=== PATIENT | male | born 1950 | race Caucasian/White ===

== ENCOUNTER 2018-08-30 00:40 | Inpatient (IN) | payer BC, MEDICARE ==
[2018-08-29 15:24] LABS: INR 1.02
[2018-08-30] VITALS (12 sets, daily range): BP systolic 111–154; BP diastolic 56–89
[~2018-08-30] VITALS: Ht 172.7 cm; Wt 108.9 kg
[~2018-08-30 00:40] MED LIST: ASPI-1471 PO; CYCL10TA29 PO; GABA-549 PO; LOSA100T75 PO; MAGN400C PO; METO25TA23 PO; NAPR500T31 PO; TRAM-420 PO; TURM500C4 PO
[2018-08-30] MEDS ORDERED: PREGABALIN 150 MG CAPSULE PO ONE (07:15)
[2018-08-30] MEDS ORDERED: ceFAZolin(*) 2GM/D5W 50ML 50 ML IVPB ONE (07:15)
[2018-08-30] MEDS ORDERED: TRANEXAMIC AC 1000 MG/10ML SDV 1,000 MG in DEXTROSE 5% 50 ML BAG 50 ML IV ONE (07:15)
[2018-08-30] MEDS ORDERED: LIDOCAINE/SOD BICARB 8.4% SYR ID ONE (07:15)
[2018-08-30] MEDS ORDERED: NORMOSOL R SOLN(*) 1000 ML BAG 1,000 ML IV PRN (07:15)
[2018-08-30] MEDS ORDERED: CELECOXIB 200 MG CAP PO ONE (07:15)
[2018-08-30] MEDS ORDERED: ROPIVACAINE/EPI/CLONIDINE/KET 50 ML SYRINGE INJ ONE (07:15)
[2018-08-30] MEDS ORDERED: FAMOTIDINE 20 MG TAB PO ONE (07:15)
[2018-08-30] MEDS ORDERED: MIDAZOLAM 2 MG/2 ML VIAL IVP PRN (07:15)
[2018-08-30] MEDS ORDERED: ACETAMINOPHEN 500 MG TAB PO ONE (07:15)
[2018-08-30] MEDS ORDERED: BACITRACIN 50000 UNIT/VIAL 100,000 UNIT in NS 0.9% 3000 ML IRRIGATION BAG 3,000 ML IR ONE (07:15)
[2018-08-30] MEDS ORDERED: fentaNYL CITR 100 MCG/2 ML AMP ONE (07:18)
[2018-08-30] MEDS ORDERED: KETAMINE HCL-NS 50 MG/5 ML SYR ONE (07:18)
[2018-08-30] MEDS ORDERED: LIDOCAINE MPF 1% 5 ML VIAL ONE (07:19)
[2018-08-30] MEDS ORDERED: DEXAMETHASONE SOD PHOS 10MG/ML ONE (07:19)
[2018-08-30] MEDS ORDERED: PROPOFOL EMUL(*) 10MG/ML 20 ML 20 ML ONE (07:19)
[2018-08-30] MEDS ORDERED: ONDANSETRON 4 MG/2 ML VIAL ONE (07:19)
[2018-08-30] MEDS ORDERED: NS(*) 0.9% 100 ML BAG 100 ML ONE (09:09)
--- NOTE | 2018-08-30 10:25 | RADIOLOGY IMAGING REPORT ---
FACILITY: [facility] PATIENT NAME: Jesse Franklin : 1950 MR: [id number] V: [id number] EXAM DATE: ORDERING PHYSICIAN: JOSE C MARCOS TECHNOLOGIST: Location: [facility] Patient: Jesse Franklin : 1950 Visit/Account:[id number] Date of Sevice: 08/30/2018 HIP IN OR LEFT COMPARISON: None. HISTORY: Arthroplasty FINDINGS: Single view of the left hip demonstrates left hip arthroplasty. Instrumentation overlies the pelvis. No lucency about the left hip component. Gas within the joint is likely postoperative. IMPRESSION: Single postoperative view left hip without findings of complication. Report Dictated By: Braydon Cedeno MD at 08/30/2018 10:15 AM Report E-Signed By: Braydon Cedeno MD at 08/30/2018 10:15 AM WSN:[id number]
[2018-08-30] MEDS ORDERED: MAGNESIUM HYDROXIDE* 30ML UDCP PO PRN (10:45)
[2018-08-30] MEDS ORDERED: BISACODYL 10 MG SUPP PR PRN (10:45)
[2018-08-30] MEDS ORDERED: LR 1000 ML BAG 1000 ML IV PRN (10:45)
[2018-08-30] MEDS ORDERED: ONDANSETRON 4 MG/2 ML VIAL IVP PRN (10:45)
[2018-08-30] MEDS ORDERED: diphenhydrAMINE 50 MG/ML VIAL IVP PRN (10:45)
[2018-08-30] MEDS ORDERED: PROMETHAZINE 25 MG/ML 1 ML AMP IVP PRN (10:45)
[2018-08-30] MEDS ORDERED: ZOLPIDEM TARTRATE 5 MG TAB PO PRN (10:45)
[2018-08-30] MEDS ORDERED: HYDROmorphone HCL 2 MG/ML SDV IVP PRN (10:45)
[2018-08-30] MEDS ORDERED: FLUSH 10 ML SYR IVP PRN (10:45)
[2018-08-30] MEDS ORDERED: diphenhydrAMINE 25 MG CAP PO PRN (10:45)
[2018-08-30] MEDS ORDERED: MAGNESIUM CITRATE 300 ML BTL PO PRN (10:45)
[2018-08-30] MEDS ORDERED: NORMOSOL R SOLN(*) 1000 ML BAG 1,000 ML IV ONE (11:05)
--- NOTE | 2018-08-30 11:19 | RADIOLOGY IMAGING REPORT ---
FACILITY: [facility] [place] PATIENT NAME: Jesse Franklin : 1950 MR: [id number] V: [id number] EXAM DATE: ORDERING PHYSICIAN: JOSE C MARCOS TECHNOLOGIST: Location: [facility] [place] Patient: Jesse Franklin : 1950 Visit/Account:[id number] Date of Sevice: 08/30/2018 Pelvis single view: HISTORY: Left ARA, postop COMPARISON: None. FINDINGS: Supine view was obtained of the pelvis. Left hip prosthesis is in place with anatomic alig nment of the components. There is no fracture. There is no evidence of loosening. Visualized portions of the pelvic ring are intact. Right hip is unremarkable. IMPRESSION: Placement of a left hip prosthesis with anatomic alignment of the components. There is n o radiographic evidence of an immediate complication. Report Dictated By: Sharon Raya MD at 08/30/2018 11:09 AM Report E-Signed By: Sharon Raya MD at 08/30/2018 11:10 AM WSN:[id number]
--- NOTE | 2018-08-30 11:21 | OPERATIVE REPORT 1 ---
EVENT DATE: August 30, 2018 SURGEON: Darryl Cerrato MD ANESTHESIOLOGIST: Chas Guevara MD ANESTHESIA: General plus spinal. RECREATION CLERK: Dixon Larose PA-C PREOPERATIVE DIAGNOSIS Left hip osteoarthritis. POSTOPERATIVE DIAGNOSIS Left hip osteoarthritis. PROCEDURE PERFORMED Left total hip arthroplasty. FINDINGS The patient had a significant amount of arthritic changes associated with the hip but was amenable for total hip replacement. ESTIMATED BLOOD LOSS About 250 mL. DRAINS None. COMPLICATIONS None. TOURNIQUET TIME Not applicable. IMPLANTS USED Rios 56 mm cluster-hole Trabecular metal shell with a neutral liner, a 9 standard stem, and a 40 +0 ceramic head with 3 screw hole plugs. We were unable to get the dome hole plug in there. INDICATIONS AND HISTORY This patient is a 67-year-old male who presented to my clinic for evaluation of left hip pain and irritation going on for some time. He tried all conservative management and it continued to give him pain and irritation., so he wanted to go ahead with a total hip arthroplasty to be done today 08/30/2018. We went over the risks and benefits associated with this and informed consent was obtained at the last clinic visit and so we got him set up to do this and we talked about the risks of a hip in terms of leg-length discrepancy, dislocation and other common problems associated with the hip and after discussion of the risks and benefits, informed consent was obtained at the last clinic visit. DESCRIPTION OF PROCEDURE As the patient was brought in the operating room, he and the procedure were both verified. He was given a spinal by Anesthesia, and then laid supine on the operative table, induced and intubated. He was then turned in the lateral decubitus position with the left hip towards the ceiling. The left hip was prepped and draped in the usual fashion and a timeout was observed verifying the correct patient and procedure. The standard incision was made over the posterolateral aspect of the hip. It was taken through the skin and subcutaneous tissue until I got down to the IT band and then to the gluteal musculature. I then was able to cut that apart and then get underneath the area and resect the hip bursa in this area and get to the posterior aspect of the hip. I then was able to cut and tag the piriformis and tagged it for later repair. I then cut some of the internal and external rotators and then got down to the capsule. Once I made a nice T-incision within the capsule, I was then able to dislocate the hip without too much difficulty, although there was a significant osteophyte formation. I then cut the femoral neck without any major issues and then removed the head. I then put retractors around the acetabulum and then was able to cut off the labrum and then what was left of the ligamentum in the acetabular shell. I then commenced reaming starting with 49 [address] the way up to a 55 mm reamer. The 55 mm reamer had good fit associated with it and got an excellent back wall, so therefore we then put in a 56 cluster-hole shell without any major difficulty and it stuck well and seemed to be fitting very well. We could not get the dome hole plug in. Somehow it would not thread into there, so I left that open. I then put in the screw hole plugs without any major difficulty and then they were held in place. I then put in the final liner without any issues and irrigated with copious amounts of saline which I had throughout the case, and I also used Irrisept throughout this area which we let sit for awhile. I was then able to turn attention to the femur where we put it in a flexed and internally rotated position. I was then able to take a box-cutting osteotome, followed by canal finding reamer and then a lateralizing reamer in order to gain access to the femoral canal. I then commenced broaching with a [address] up to a 9. This had excellent fit associated with it, and so therefore we then put in a standard head and neck, relocated the hip and then put it through a range of motion. It was very stable and the leg-lengths appeared to be equal, so therefore we then took an intraoperative x-ray. The intraoperative x-ray showed excellent leg-lengths and good fill of the stem, and the cup had no signs of problems. So therefore we removed all of the instrumentation and then put in the final 9 stem with a 40 +0 ceramic head, put it through a range of motion again and once again it seemed to be the exact same length and stability. Therefore, we then closed the capsule with a heavy Ethibond. This was then followed by repair of the piriformis through drill holes in the posterior aspect of the femur. I then irrigated again which I had through the entire case and then closed the gluteal musculature and the IT band with a #2 Quill. This was then followed by 2-0 Vicryl in the fat layer and then 2-0 Stratafix in the subcutaneous layer and then a subcuticular 4-0 running Monocryl through the skin. We then applied a dressing and a soft hip wrap and then the patient was awakened and extubated, and transferred to the PACU in stable condition. VISH
--- NOTE | 2018-08-30 13:28 | Hospitalist Consultation ---
History of Present Illness Requesting Physician Dr. Cerrato Reason for Consult Hypertension management History of Present Illness S/P Left Hip replacement by Dr. Cerrato. 250CC EBL. No complications or concerns reported. History Problems: (1) Hypertension Status: Chronic Home Meds Reported Medications Metoprolol Succinate (METOPROLOL SUCCINATE) 25 Mg Tab.er.24h, 1 TAB PO QDAY, TAB 08/29/18 Tramadol Hcl (TRAMADOL HCL) 50 Mg Tablet, 50-100 MG PO Q4-6H, TAB 08/29/18 Turmeric/Turmeric Root Extract (Turmeric 500 mg Capsule) 450 Mg-50 Mg Capsule, 1 CAP PO BID 08/29/18 Magnesium Oxide (MAGNESIUM) 400 Mg Capsule, 400 MG PO, CAPSULE 08/29/18 Aspirin (ASPIR 81) 81 Mg Tablet.dr, 81 MG PO QDAY, TAB 08/29/18 Losartan Potassium (LOSARTAN POTASSIUM) 100 Mg Tablet, 100 MG PO QDAY 08/29/18 Cyclobenzaprine Hcl (CYCLOBENZAPRINE HCL) 10 Mg Tablet, 10 MG PO 2XW PRN for PRN, #9 TAB 08/29/18 Gabapentin (GABAPENTIN) 300 Mg Capsule, 300 MG PO TID, CAPSULE 08/29/18 Naproxen (NAPROXEN) 500 Mg Tablet, 500 MG PO DAILY, TAB 08/29/18 Allergies: Uncoded Allergies: SALMON (Allergy, Intermediate, MOUTH SWELLING, 08/23/18) TROUT (Allergy, Intermediate, MOUTH SWELLING, 08/23/18) Patient History: FH: CHF (congestive heart failure) FATHER, FH: COPD (chronic obstructive pulmonary disease) FATHER, FHx: diabetes mellitus MOTHER, Hx Smoking: No Caffeine/Cups Per Day: NONE Hx Alcohol Use: No Alcohol Used: Wine Hx Substance Use Disorder: No Social Drug Use: Never History of IV Drug Use: No Review of Systems All Systems Reviewed/Normal: Yes Constitutional: No Fever Neurological: No Confusion Cardiovascular: No Chest Pain, No Palpitations Respiratory: No Shortness of Breath, No Cough Exam Vital Signs Vital Signs Date Time Temp Pulse Resp B/P (MAP) Pulse Ox O2 Delivery O2 Flow Rate FiO2 08/30/18 12:30 98 Nasal Cannula 1.0 08/30/18 12:14 97.6 66 16 127/69 (88) General Appearance: Alert, Awake, No Acute Distress Neuro: No Gross deficits Cardiovascular: Regular Rate and Rhythm Respiratory: No Respiratory Distress, Clear to Auscultation Assessment and Plan Problems: (1) S/P hip replacement Assessment & Plan: Right total hip replacement by Dr. Cerrato. 250cc EBL during the procedure. On Aspirin 325mg for anticoagulation postoperatively. No reported surgical complications. Pain management with IV Dialudid, oral Percocet, and oral Gabapentin. Ancef for antibiotic coverage postoperatively. (2) Hypertension Status: Chronic Assessment & Plan: Chronically on Losartan and Metoprolol. Will continue on Losartan and Metoprolol with parameters. Venous Thromboembolism Antithrombotics Is Pt On Any Antithrombotics?: No DREAD VEGA Aug 30, 2018 13:28
[2018-08-30] MEDS: GABAPENTIN 300 MG CAP PO SCH ×2 (14:37→21:05)
--- NOTE | 2018-08-30 16:20 | NUR ---
Physical Therapy Impression PT eval completed. Pt tolerated bed mobility with Min/CGA and sit to/from stand with CGA. Pt then demonstrated safe weight shifting and balance with side stepping at EOB and felt confident to attempt ambulation to/from BR. Pt notes good pain control overall. Physical Therapy Goals 1. Pt to be SBA/CGA for bed mobility and sup<>Sit transfers 2. Pt to be SBA/CGA for sit to/from stand transfers 3. Pt to ambulate x 100' with FWW and SBA/Modified indep 4. Pt to complete up/down 4 steps with rail and SBA/Mod indep Patient's Goals
[2018-08-30] MEDS ORDERED: NS(*) 0.9% 250 ML BAG 250 ML ONE (16:41)
[2018-08-30] MEDS: ceFAZolin(*) 2GM/D5W 50ML 50 ML IVPB SCH ×2 (16:47→23:59)
[2018-08-30] MEDS: oxyCODON/ACET (*)5/325MG (CII) 1 TAB TAB PO PRN ×3 (19:40→23:59)
[2018-08-30] MEDS ORDERED: ASPIRIN 325 MG TAB PO SCH (21:00)
[2018-08-31 05:40] VITALS: BP 137/76
[2018-08-31] MEDS: oxyCODON/ACET (*)5/325MG (CII) 1 TAB TAB PO PRN ×2 (07:07→12:42)
[2018-08-31 07:35] VITALS: BP 134/79
--- NOTE | 2018-08-31 07:46 | NUR ---
Occupational Therapy Impression Pt. performed bed mobility with [place] and LB dressing with use of regional coordinator and sock aide with Mod I. Pt. performed transfer with use of FWW with SBA. All OT goals met. Pt. ready for d/c to home when PT goals met and pt. medically appropriate. D/C OT. Occupational Therapy Goals Patient's Goal
[2018-08-31] MEDS: ceFAZolin(*) 2GM/D5W 50ML 50 ML IVPB SCH (08:04)
[2018-08-31 08:48] VITALS: Ht 172.7 cm; Wt 108.9 kg
[2018-08-31] MEDS ORDERED: LOSARTAN POTASSIUM 50 MG TAB PO SCH (09:00)
[2018-08-31] MEDS ORDERED: METOPROLOL SUCC XL 25 MG TABCR PO SCH (09:00)
[2018-08-31] MEDS ORDERED: ASPI-757 PO (09:05)
--- NOTE | 2018-08-31 09:07 | Hospitalist Progress Note ---
Subjective Progress Notes Subjective No acute events overnight. PT required minimal pain medication. Patient Complains of: Neurological: No: Confusion, Weakness Cardiovascular: No: Chest Pain, Palpitations Respiratory: No: Congestion, Shortness of Breath Physical Exam Vital Signs Date Time Temp Pulse Resp B/P (MAP) Pulse Ox O2 Delivery O2 Flow Rate FiO2 08/31/18 07:35 97.6 77 15 134/79 (97) 95 Room Air 08/31/18 05:40 1.0 Intake and Output 08/31/18 01:03 Intake Total 3970 ml Output Total 1050 ml Balance 2920 ml Intake Oral 1820 ml IV Total 2150 ml Output Urine Total 900 ml Estimated Blood Loss 150 ml # Voids 5 General Appearance: Alert, Awake, No Acute Distress Neuro: No Gross deficits Cardiovascular: Regular Rate and Rhythm Respiratory: No Respiratory Distress, Clear to Auscultation Result Diagram: 08/31/18 0543 Assessment and Plan Problems: (1) S/P hip replacement Assessment & Plan: Right total hip replacement by Dr. Cerrato. 250cc EBL during the procedure. On Aspirin 325mg for anticoagulation postoperatively. No reported surgical complications. Pain management per Ortho. No concerns from nursing. PT/OT are seeing him. (2) Hypertension Status: Chronic Assessment & Plan: Chronically on Losartan and Metoprolol. Will continue on Losartan and Metoprolol with parameters. Exam Sepsis Risk: No Definite Risk DREAD VEGA Aug 31, 2018 09:07
[2018-08-31 09:47] VITALS: BP 135/76
[2018-08-31] MEDS: GABAPENTIN 300 MG CAP PO SCH (09:48)
[2018-08-31 11:47] VITALS: BP 133/74
[2018-08-31 12:07] VITALS: BP 120/88
== END 2018-08-31 14:50 | disposition home or self-care (01) | DRG 470 ==
LOC: OR 00:40 → MED 12:05
PROVIDERS: ADMIT Orthopaedic Surgery; ATTEND Orthopaedic Surgery
PROC: 0SRB03A Replacement of Left Hip Joint with Ceramic Synthetic Substitute, Uncemented, Open Approach (ICD-10-PCS; principal; 2018-08-30 08:19)
DX: M16.12 Unilateral primary osteoarthritis, left hip (principal); I10 Essential (primary) hypertension; Z91.013 Allergy to seafood
CPT/HCPCS: 36415; 72170; 85014; 85018; 85610; 86850; 86900; 86901; 97161; 97165; C1713; C1776; J0690; J1100; J2001; J2250; J2405; J2704; J3010; J3490; J7050; J7060